=== PATIENT | female | born 1990 | race African-American/Black ===

== ENCOUNTER 2017-02-12 10:39 | Emergency (ER) | payer OTHER ==
[~2017-02-12] VITALS: Ht 157.5 cm; Wt 102.4 kg
[~2017-02-12 10:39] MED LIST: DOCUSATE SODIU100 MG PO; ENDOCET 5-3251 EACH PO; FERROUS SULFAT325 MG PO; IBUPROFEN800 MG PO; PRENATAL TABLE1 EAC3 PO; VITAMIN C500 M1 PO; ZOFRAN4 MG PO
[2017-02-12 14:00] VITALS: BP 145/79
== END 2017-02-12 14:00 | disposition home or self-care (01) ==
LOC: EME 10:39
DX: S40.022A Contusion of left upper arm, initial encounter (principal); Y04.0XXA Assault by unarmed brawl or fight, initial encounter; M79.602 Pain in left arm; Y92.009 Unspecified place in unspecified non-institutional (private) residence as the place of occurrence of the external cause
CPT/HCPCS: 99281; 99283

== ENCOUNTER 2017-10-30 09:14 | Emergency (ER) | payer BC ==
[~2017-10-30] VITALS: Ht 160 cm; Wt 108.2 kg
[2017-10-30 09:45] LABS: HEMATOCRIT 42.6 % (36.0-46.0); MCH 29.9 PG (29.0-34.0); MCHC 35.2 G/DL (30.0-36.0); PLATELET COUNT 285 K/uL (156-360); RBC DIS.WIDTH-CV 12.7 % (11.8-14.6); RBC DIS.WIDTH-SD 38.9 % (39-53); RED BLOOD COUNT 5.01 M/uL (3.80-5.20); WHITE BLOOD COUNT 9.2 K/uL (4.1-10.2)
[2017-10-30 10:18] LABS: ALBUMIN 4.2 g/dL (3.2-4.8); CHLORIDE 108 mEq/L (99-109); POTASSIUM 3.7 mEq/L (3.7-5.4); SODIUM 139 mEq/L (136-147)
[2017-10-30 10:20] LABS: GLUCOSE 133 mg/dL (70-99); TOTAL PROTEIN 7.7 g/dL (6.4-8.3)
[2017-10-30 10:22] LABS: TOTAL BILIRUBIN 0.5 mg/dL (0.0-1.0)
[2017-10-30 10:24] LABS: ALKALINE PHOSPHATASE 66 IU/L (3-129); CREATININE 0.8 mg/dL (0.6-1.3); GFR ESTIMATE (CALCULATED) > 59 mL/min/
[2017-10-30 10:24] LABS: APPEARANCE SL.HAZY ((CLEAR)); BILIRUBIN NEGATIVE; BLOOD SMALL; COLOR YELLOW ((YELLOW)); GLUCOSE (STRIP) NEGATIVE; KETONES NEGATIVE; LEUKOCYTES NEGATIVE; NITRITE NEGATIVE; PROTEIN (STRIP) 30; SPECIFIC GRAVITY 1.019 (1.000-1.030); UROBILINOGEN 0.2 MG/DL (0.2-1.0)
[2017-10-30 10:25] LABS: UREA NITROGEN (BUN) 14 mg/dL (9-23)
[2017-10-30 10:26] LABS: AST (GOT) 23 IU/L (2-34)
[2017-10-30 10:27] LABS: ALT (GPT) 25 IU/L (3-49); LIPASE 20 U/L (1.0-51.0)
[2017-10-30 10:30] LABS: BACTERIA NONE SEEN /HPF; EPITHELIAL CELLS 1+ /HPF; MUCUS TRACE /LPF; RED BLOOD CELLS 0-5 /HPF (0-5); UCUL ADDED? NO; WHITE BLOOD CELLS 0-5 /HPF (0-5)
[2017-10-30 10:34] LABS: QUANTITATIVE HCG < 4.0 MIU/ML
[2017-10-30] MEDS ORDERED: ZOFRAN4 MG PO (13:04)
[2017-10-30 13:17] VITALS: BP 132/60
== END 2017-10-30 13:18 | disposition home or self-care (01) ==
LOC: EME 09:14
PROVIDERS: Physician Assistant
DX: K42.9 Umbilical hernia without obstruction or gangrene (principal)
CPT/HCPCS: 74176; 80053; 81003; 83690; 84702; 85027; 99281; 99284

== ENCOUNTER 2017-11-30 07:42 | Day surgery (SDC) | payer BC ==
[~2017-11-30] VITALS: Ht 160 cm; Wt 108.8 kg
[2017-11-30 08:27] VITALS: BP 138/82
[2017-11-30] MEDS ORDERED: HYDROCODON-ACE1 EAC7 PO (11:22)
[2017-11-30 12:44] VITALS: BP 120/70
[2017-11-30 13:33] VITALS: BP 134/87
[2017-11-30 15:54] VITALS: BP 120/70
== END 2017-11-30 15:58 | disposition home or self-care (01) ==
LOC: SDC 07:42
PROC: 0WUF0JZ Supplement Abdominal Wall with Synthetic Substitute, Open Approach (ICD-10-PCS; principal; 2017-11-30)
DX: K43.6 Other and unspecified ventral hernia with obstruction, without gangrene (principal); E66.01 Morbid (severe) obesity due to excess calories; Z68.41 Body mass index [BMI] 40.0-44.9, adult; J45.20 Mild intermittent asthma, uncomplicated; E01.0 Iodine-deficiency related diffuse (endemic) goiter
CPT/HCPCS: C1781; J0690; J1100; J1885; J2250; J2405; J2710; J2765; J3010; J3475; J7643